=== PATIENT | female | born 1980 | race Caucasian/White ===

== ENCOUNTER 2018-01-16 17:09 | Emergency (ER) | payer SELFPAY ==
--- NOTE | 2018-01-16 19:54 | EDM.PDOC ---
ED HPI GENERAL MEDICAL PROBLEM - General Chief Complaint: Genitourinary Problem Stated Complaint: UTI Time Seen by Provider: 01/16/18 19:50 Source of Information: Reports: Patient History Limitations: Reports: No Limitations - History of Present Illness INITIAL COMMENTS - FREE TEXT/NARRATIVE: patient comes emergency department today with concerns of urinary tract infection. Over the past week and a half or so she has had quite a bit of vaginal dryness and irritation. She has had dyspareunia. She has recently moved back to [place] and has a relatively new partner but it is monogamousshe reports and he has her fianc. The pain is so uncomfortable that she has had to stop intercourse. She has had no vaginal bleeding. No abdominal pain. No hematuria dysuria or frequency. No fever no chills. No flank pain. She does not believe that she is . She's never had any problems like this in the past. She denies any change in discharge or odor. Vaginal Pain Score (Numeric/FACES): 5 - Related Data Allergies Allergy/AdvReac Type Severity Reaction Status Date / Time No Known Allergies Allergy Verified 01/16/18 17:49 Home Meds: Home Meds . [No Known Home Meds] 01/16/18 [History] Past Medical History - Past Health History Medical/Surgical History: Denies Medical/Surgical History Social & Family History - Tobacco Use Smoking Status *Q: Former Smoker Used Tobacco, but Quit: Yes Month/Year Tobacco Last Used: 09/2017 - Recreational Drug Use Recreational Drug Use: No ED ROS GENERAL - Review of Systems Review Of Systems: ROS reveals no pertinent complaints other than HPI. ED EXAM, GI/ABD - Physical Exam Exam: See Below Exam Limited By: No Limitations General Appearance: Alert, WD/WN, No Apparent Distress Nose: Normal Inspection Throat/Mouth: Normal Inspection Head: Normocephalic Neck: Normal Inspection Respiratory/Chest: No Respiratory Distress, Lungs Clear, No Accessory Muscle Use Cardiovascular: Normal Peripheral Pulses, Regular Rate, Rhythm GI/Abdominal Exam: Normal Bowel Sounds, Soft, Non-Tender, No Organomegaly, No Distention, No Abnormal Bruit, No Mass, Pelvis Stable (Female) Exam: Other (Completed with Yocasta RN in the room. speculum exam shows quite a bit of thin romano rather fishy smelling discharge.ppearance of her cervix is normal without any discharge or any lesions.). No: Adnexal Mass, Adnexal Tenderness, Cervical Discharge, Cervical Fluid, Cervical Lesions, Cervix Motion Tenderness, Enlarged Uterus Rectal (Female) Exam: Deferred Back Exam: Normal Inspection Extremities: Normal Inspection, Normal Capillary Refill Neurological: Alert, Oriented Psychiatric: Normal Affect Skin Exam: Warm, Dry, Intact, Normal Color Course - Vital Signs Last Recorded V/S: Last Vital Signs Temp 36.1 C 01/16/18 21:01 Pulse 60 01/16/18 21:01 Resp 16 01/16/18 21:01 BP 148/83 H 01/16/18 21:01 Pulse Ox 100 01/16/18 21:01 - Orders/Labs/Meds Orders: Active Orders 24 hr Category Date Time Status CHLAMYDIA AND GONORRHEA BY TMA Stat Lab 01/16/18 17:45 Received HCG QUALITATIVE,URINE [URCHEM] Stat Lab 01/16/18 17:45 Ordered Labs: Laboratory Tests 01/16/18 01/16/18 Range/Units 17:45 17:45 Urine Color Yellow (YELLOW) Urine Appearance Clear (CLEAR) Urine pH 7.5 (5.0-9.0) Ur Specific [place] 1.010 (1.005-1.030) Urine Protein Negative (NEGATIVE) Urine Glucose (UA) Negative (NEGATIVE) Urine Ketones Negative (NEGATIVE) Urine Occult Blood Negative (NEGATIVE) Urine Nitrite Negative (NEGATIVE) Urine Bilirubin Negative (NEGATIVE) Urine Urobilinogen 0.2 (0.2-1.0) mg/dL Ur Leukocyte Esterase Negative (NEGATIVE) Urine RBC 0-5 /HPF Urine WBC 0-5 (0-5/HPF) /HPF Ur Epithelial Cells Rare /HPF Urine Bacteria Rare (0-FEW/HPF) /HPF Urine Mucus Rare /LPF Urine Other See note Urine HCG, Qual Negative Microbiology 01/16/18 20:11 Vagina Wet Prep - Final Microbiology 01/16/18 20:11 Vagina Wet Prep - Final Meds: Medications Discontinued Medications Generic Name Dose Route Start Last Admin Trade Name Freq PRN Reason Stop Dose Admin Azithromycin 1,000 mg 01/16/18 20:32 01/16/18 20:46 Zithromax PO 01/16/18 20:33 1,000 mg ONETIME ONE Administration Ceftriaxone Sodium 250 mg 01/16/18 20:32 01/16/18 20:53 Rocephin IM 01/16/18 20:33 250 mg ONETIME ONE Administration Lidocaine HCl 10 ml 01/16/18 20:40 01/16/18 20:52 Xylocaine 1% IM 01/16/18 20:41 Not Given ONETIME ONE Lidocaine HCl Confirm 01/16/18 20:39 01/16/18 20:53 Xylocaine-Mpf 1% Administered 01/16/18 20:40 Not Given Dose 30 ml .ROUTE .STK-MED ONE Lidocaine HCl 30 ml 01/16/18 20:50 01/16/18 20:53 Xylocaine-Mpf 1% .XX 01/16/18 20:51 1 ml ONETIME ONE Administration Lidocaine HCl Confirm 01/16/18 20:49 01/16/18 20:53 Xylocaine-Mpf 1% Administered 01/16/18 20:50 Not Given Dose 30 ml .ROUTE .STK-MED ONE Ondansetron HCl 4 mg 01/16/18 20:32 01/16/18 20:44 Zofran Odt PO 01/16/18 20:33 4 mg ONETIME ONE Administration - Re-Assessments/Exams Free Text/Narrative Re-Assessment/Exam: 01/16/18 22:36 espite the presence of the negative wet prep clinical evaluation clearly appears to be BV i will cover her for STI's as well with Rocephin and azithromycin. As well as MetroGel for BV. If she is not improving over the next week she is to recheck. She is aware that if she has contacted that her STI screen is positive that her partner needs to be treated as well. Departure - Departure Time of Disposition: 20:32 Disposition: Home, Self-Care 01 Clinical Impression: Bacterial vaginosis - Discharge Information Instructions: Bacterial Vaginosis, [id number] Referrals: PCP,None [Primary Care Provider] - Forms: ED Department Discharge Additional Instructions: Pelvic rest for the next week. Lubricants once started none scented such as demetrice glyde. Metrogel, 1 application per vaginal at bedtime for the next 5 days. RX given to the patient. Return to the ED if new or worsening symptoms. Follow up with primary care provider in the next 4-6 days if not improving sooner if worse. - My Orders Last 24 Hours: My Active Orders 01/16/18 17:45 CHLAMYDIA AND GONORRHEA BY TMA Stat HCG QUALITATIVE,URINE [URCHEM] Stat - Assessment/Plan Last 24 Hours: My Active Orders 01/16/18 17:45 CHLAMYDIA AND GONORRHEA BY TMA Stat HCG QUALITATIVE,URINE [URCHEM] Stat Assessment:: Bacterial Vaginosis Coverage for STDs dyspareunia Plan: Pelvic rest for the next week. Lubricants once started none scented such as demetrice glyde. Metrogel, 1 application per vaginal at bedtime for the next 5 days. RX given to the patient. Return to the ED if new or worsening symptoms. Follow up with primary care provider in the next 4-6 days if not improving sooner if worse.
[2018-01-16] MEDS ORDERED: cefTRIAXone 250 MG Vial IM ONE (20:32)
[2018-01-16] MEDS ORDERED: Azithromycin 250 MG Tab PO ONE (20:32)
[2018-01-16] MEDS ORDERED: Ondansetron 4 MG Tab.DIS PO ONE (20:32)
[2018-01-16] MEDS ORDERED: Lidocaine 1% 30 ML SDV ONE ×3 (20:39→20:50)
[2018-01-16] MEDS ORDERED: Lidocaine 1% 10 ML MDV IM ONE (20:40)
== END 2018-01-16 21:04 | disposition home or self-care (01) ==
LOC: DL.ED 17:09
DX: N76.0 Acute vaginitis (principal); B96.89 Other specified bacterial agents as the cause of diseases classified elsewhere; N94.10 Unspecified dyspareunia; Z87.891 Personal history of nicotine dependence
CPT/HCPCS: 81001; 81025; 87210; 87491; 87591; 96372; 99283; A9270; J0696